=== PATIENT | female | born 1940 | race Caucasian/White ===

== ENCOUNTER 2016-06-15 11:07 | Inpatient (IN) | payer MEDICARE, OTHER ==
[~2016-06-15] VITALS: Ht 160 cm; Wt 75.3 kg
[2016-06-15] MEDS ORDERED: METHYLPRED SOD SUCC 125 MG/2 ML VIAL ONE (11:47)
[2016-06-15] MEDS ORDERED: DUONEB INH ONE (12:53)
[2016-06-15] MEDS ORDERED: AZITHROMYCIN 500 MG VIAL IV ONE (12:57)
[2016-06-15] MEDS ORDERED: CEFTRIAXONE 1 GM VIAL ONE (12:57)
[2016-06-15] MEDS ORDERED: SODIUM CHLORIDE 0.9% 100 ML IV ONE (12:58)
[2016-06-15] MEDS ORDERED: SODIUM CHLORIDE 0.9% 250 ML IV ONE (12:58)
[2016-06-15 14:40] VITALS: BP_SYST 162; RESP 18; TEMP 97.3
[2016-06-15 14:45] VITALS: Ht 160 cm; Wt 75.3 kg
[2016-06-15 15:00] VITALS: RESP 18
[2016-06-15] MEDS: DUONEB INH SCH ×3 (15:05→22:09)
[2016-06-15] MEDS: METHYLPRED SOD SUCC 125 MG/2 ML VIAL IV SCH ×2 (15:25→23:00)
[2016-06-15] MEDS ORDERED: *PINK BRACELET XX ONE (15:45)
[2016-06-15] MEDS: *HOME MEDS KEPT IN PHARMACY XX SCH (20:00)
[2016-06-15] MEDS ORDERED: Furosemide 20 MG/2 ML VIAL IV ONE (20:15)
[2016-06-15] MEDS ORDERED: SALINE FLUSH 10 ML FLUSH PRN (20:20)
[2016-06-15 20:35] VITALS: BP_SYST 133; RESP 18; TEMP 98.1
[2016-06-15] MEDS: PANTOPRAZOLE 40 MG TAB PO SCH (21:34)
[2016-06-15] MEDS: LISINOPRIL 10 MG TAB PO SCH (21:34)
[2016-06-15] MEDS: THEOPHYLLINE SR 200 MG CAP PO SCH (21:34)
[2016-06-15] MEDS: BISOPROLOL 5 MG TAB PO SCH (21:35)
[2016-06-15] MEDS: GUAIFEN/DM 600/30 TAB PO SCH (21:38)
[2016-06-15] MEDS: ENOXAPARIN 30 MG/0.3 ML SYR SUBQ SCH (21:39)
[2016-06-16] VITALS (7 sets, daily range): BP systolic 111–135; RESP 16–24; TEMP 97.2–98.1
[2016-06-16] MEDS: DUONEB INH SCH ×7 (02:28→23:30)
[2016-06-16] MEDS: SODIUM CHLORIDE 0.9% FLUSH BAG 500 ML IV SCH (04:30)
[2016-06-16] MEDS: *HOME MEDS KEPT IN PHARMACY XX SCH ×2 (08:00→20:00)
[2016-06-16] MEDS: METHYLPRED SOD SUCC 125 MG/2 ML VIAL IV SCH (08:33)
[2016-06-16] MEDS: CEFTRIAXONE 1 GM in SODIUM CHLORIDE 0.9% 50 ML IV SCH (08:33)
[2016-06-16] MEDS: SALINE FLUSH 10 ML FLUSH SCH ×2 (08:33→20:39)
[2016-06-16] MEDS: GUAIFEN/DM 600/30 TAB PO SCH ×2 (08:34→20:39)
[2016-06-16] MEDS: ENOXAPARIN 30 MG/0.3 ML SYR SUBQ SCH (08:34)
[2016-06-16] MEDS: LISINOPRIL 10 MG TAB PO SCH (08:34)
[2016-06-16] MEDS: THEOPHYLLINE SR 200 MG CAP PO SCH (08:34)
[2016-06-16] MEDS: BISOPROLOL 5 MG TAB PO SCH (08:35)
[2016-06-16] MEDS: AZITHROMYCIN 500 MG in SODIUM CHLORIDE 0.9% 250 ML IV SCH (10:55)
[2016-06-16] MEDS: METHYLPRED SOD SUCC 40 MG VIAL IV SCH (17:52)
[2016-06-16] MEDS: PANTOPRAZOLE 40 MG TAB PO SCH (20:39)
[2016-06-17] MEDS: METHYLPRED SOD SUCC 40 MG VIAL IV SCH ×4 (00:25→23:38)
[2016-06-17] MEDS: DUONEB INH SCH ×2 (02:29→07:17)
[2016-06-17 04:02] VITALS: BP_SYST 111; RESP 18; TEMP 97.9
[2016-06-17] MEDS: SODIUM CHLORIDE 0.9% FLUSH BAG 500 ML IV SCH (05:08)
[2016-06-17 07:00] VITALS: BP_SYST 133; RESP 18; TEMP 98
[2016-06-17] MEDS: *HOME MEDS KEPT IN PHARMACY XX SCH ×2 (08:00→20:00)
[2016-06-17] MEDS: SALINE FLUSH 10 ML FLUSH SCH ×2 (08:47→20:00)
[2016-06-17] MEDS: CEFTRIAXONE 1 GM in SODIUM CHLORIDE 0.9% 50 ML IV SCH (08:48)
[2016-06-17] MEDS: BISOPROLOL 5 MG TAB PO SCH (08:51)
[2016-06-17] MEDS: LISINOPRIL 10 MG TAB PO SCH (08:51)
[2016-06-17] MEDS: GUAIFEN/DM 600/30 TAB PO SCH ×2 (08:51→21:39)
[2016-06-17] MEDS: THEOPHYLLINE SR 100 MG CAP PO SCH (08:52)
[2016-06-17] MEDS: ENOXAPARIN 30 MG/0.3 ML SYR SUBQ SCH (08:53)
[2016-06-17] MEDS ORDERED: BISOPROLOL 5 MG TAB PO ONE (10:05)
[2016-06-17] MEDS: NEB-XOPENEX 0.63 MG/3 ML INH SCH ×4 (10:17→23:00)
[2016-06-17] MEDS: AZITHROMYCIN 500 MG in SODIUM CHLORIDE 0.9% 250 ML IV SCH (10:36)
[2016-06-17 11:00] VITALS: BP_SYST 117; RESP 18; TEMP 97.6
[2016-06-17 15:00] VITALS: BP_SYST 109; RESP 18; TEMP 97.9
[2016-06-17 19:18] VITALS: BP_SYST 139; RESP 20; TEMP 97.3
[2016-06-17] MEDS: PANTOPRAZOLE 40 MG TAB PO SCH (21:39)
[2016-06-17 22:46] VITALS: BP_SYST 139; RESP 20; TEMP 97.5
[2016-06-18 04:25] VITALS: BP_SYST 137; RESP 18; TEMP 98.2
[2016-06-18] MEDS: SODIUM CHLORIDE 0.9% FLUSH BAG 500 ML IV SCH (05:20)
[2016-06-18 07:39] VITALS: BP_SYST 132; RESP 20; TEMP 98.2
[2016-06-18] MEDS: *HOME MEDS KEPT IN PHARMACY XX SCH ×2 (08:00→19:39)
[2016-06-18] MEDS: NEB-XOPENEX 0.63 MG/3 ML INH SCH ×4 (08:22→22:54)
[2016-06-18] MEDS: BISOPROLOL 5 MG TAB PO SCH (09:37)
[2016-06-18] MEDS: THEOPHYLLINE SR 100 MG CAP PO SCH (09:37)
[2016-06-18] MEDS: LISINOPRIL 10 MG TAB PO SCH (09:37)
[2016-06-18] MEDS: GUAIFEN/DM 600/30 TAB PO SCH ×2 (09:37→20:23)
[2016-06-18] MEDS: SALINE FLUSH 10 ML FLUSH SCH ×2 (09:38→20:23)
[2016-06-18] MEDS: METHYLPRED SOD SUCC 40 MG VIAL IV SCH ×2 (09:38→17:44)
[2016-06-18] MEDS: CEFTRIAXONE 1 GM in SODIUM CHLORIDE 0.9% 50 ML IV SCH (09:38)
[2016-06-18] MEDS: ENOXAPARIN 30 MG/0.3 ML SYR SUBQ SCH (09:46)
[2016-06-18] MEDS: AZITHROMYCIN 500 MG in SODIUM CHLORIDE 0.9% 250 ML IV SCH (10:38)
[2016-06-18 11:53] VITALS: BP_SYST 128; RESP 20; TEMP 97.4
[2016-06-18 16:14] VITALS: BP_SYST 107; RESP 20; TEMP 98
[2016-06-18 19:27] VITALS: BP_SYST 132; RESP 18; TEMP 97.6
[2016-06-18] MEDS: PREDNISONE 20 MG TAB PO SCH (20:23)
[2016-06-18] MEDS: PANTOPRAZOLE 40 MG TAB PO SCH (20:23)
[2016-06-18 22:50] VITALS: BP_SYST 147; RESP 18; TEMP 97.6
[2016-06-19 02:24] VITALS: BP_SYST 141; RESP 20; TEMP 97.6
[2016-06-19] MEDS: SODIUM CHLORIDE 0.9% FLUSH BAG 500 ML IV SCH (05:35)
[2016-06-19] MEDS: NEB-XOPENEX 0.63 MG/3 ML INH SCH (07:00)
[2016-06-19 07:38] VITALS: BP_SYST 149; RESP 18; TEMP 98
[2016-06-19] MEDS: *HOME MEDS KEPT IN PHARMACY XX SCH ×2 (08:00→11:14)
[2016-06-19] MEDS: SALINE FLUSH 10 ML FLUSH SCH (08:36)
[2016-06-19] MEDS: CEFTRIAXONE 1 GM in SODIUM CHLORIDE 0.9% 50 ML IV SCH (08:36)
[2016-06-19] MEDS: GUAIFEN/DM 600/30 TAB PO SCH (08:37)
[2016-06-19] MEDS: BISOPROLOL 5 MG TAB PO SCH (08:37)
[2016-06-19] MEDS: PREDNISONE 20 MG TAB PO SCH (08:37)
[2016-06-19] MEDS: THEOPHYLLINE SR 100 MG CAP PO SCH (08:37)
[2016-06-19] MEDS: LISINOPRIL 10 MG TAB PO SCH (08:37)
[2016-06-19] MEDS: ENOXAPARIN 30 MG/0.3 ML SYR SUBQ SCH (08:38)
[2016-06-19] MEDS ORDERED: Furosemide 20 MG/2 ML VIAL IV ONE (09:35)
[2016-06-19 10:44] VITALS: BP_SYST 149; RESP 18; TEMP 98
[2016-06-19 10:53] VITALS: BP_SYST 149; RESP 18; TEMP 98
[2016-06-19 11:24] VITALS: BP_SYST 166; RESP 20; TEMP 97.7
== END 2016-06-19 12:20 | disposition home or self-care (01) | DRG 190 ==
LOC: ENRESERVTM → ENRESERVDT → ER 11:07 → ENPENDDIS 13:12 → EMR 13:12 → 4NT 14:32
PROVIDERS: ADMIT Internal Medicine; ATTEND Internal Medicine
DX: J44.0 Chronic obstructive pulmonary disease with (acute) lower respiratory infection (principal); J18.9 Pneumonia, unspecified organism; J44.1 Chronic obstructive pulmonary disease with (acute) exacerbation; Z87.01 Personal history of pneumonia (recurrent); Z87.891 Personal history of nicotine dependence; I10 Essential (primary) hypertension; F41.9 Anxiety disorder, unspecified; R00.0 Tachycardia, unspecified; Z99.81 Dependence on supplemental oxygen
CPT/HCPCS: 36415; 36600; 71010; 80053; 82550; 82553; 82803; 83605; 83735; 83880; 84145; 84484; 85025; 85610; 85730; 87040; 87804; 93005; 93306; 94640; 94799; 96365; 96375